=== PATIENT | male | born 1980 | race Caucasian/White ===

== ENCOUNTER 2018-11-08 18:11 | Emergency (ER) | payer OTHER ==
--- NOTE | 2018-11-08 18:15 | EDPHY ---
H & P Time Seen by Provider: 11/08/18 18:14 HPI/ROS: CHIEF COMPLAINT: Palpitations HISTORY OF PRESENT ILLNESS: The patient presents to the ED with a 1 day history of palpitations. The patient describes a sensation of an occasional skipped heartbeat. The patient has been having some pain in his left pectoralis muscle since lifting a heavy box several days ago and wonders if he may be experiencing simple muscle fasciculations. The patient is a formal equipment installation professional. He has no history of exertional chest pain or shortness of breath. The patient does have a history of palpitations associated with anxiety. He is currently undergoing a divorce. He is also recently lost a younger sister 2 breast cancer. He admits to being under fair amount of stress. Patient denies any suicidal or homicidal ideation. He denies any fever , cough or congestion. He denies pleuritic chest pain. He denies asymmetric calf pain or swelling. REVIEW OF SYSTEMS: A comprehensive 10 point review of systems is otherwise negative aside from elements mentioned in the history of present illness. Source: Patient Exam Limitations: No limitations - Medical/Surgical History PMH: Past medical history: Anxiety, palpitations - Family History Significant Family History: No pertinent family hx - Social History Smoking Status: Never smoked - Physical Exam Exam: General Appearance: Alert, no distress Eyes: Pupils equal and round no pallor or injection ENT, Mouth: Mucous membranes moist Respiratory: There are no retractions, lungs are clear to auscultation Cardiovascular: Regular rate and rhythm Gastrointestinal: Abdomen is soft and nontender, no masses, bowel sounds normal Neurological: A&O, normal motor function, normal sensory exam, normal cranial nerves Skin: Warm and dry, no rashes Musculoskeletal: Neck is supple nontender Extremities: symmetrical, full range of motion Psychiatric: Patient is oriented X 3, there is no agitation Constitutional: Initial Vital Signs Temperature (C) 36.7 C 11/08/18 18:16 Heart Rate 78 11/08/18 18:16 Respiratory Rate 18 11/08/18 18:16 Blood Pressure 188/101 H 11/08/18 18:16 O2 Sat (%) 97 11/08/18 18:16 O2 Delivery Mode Room Air Allergies/Adverse Reactions: No Known Allergies Allergy (Unverified 11/08/18 18:23) Home Medications: Medication Instructions Recorded LORazepam [Ativan] 1 mg PO HS PRN #6 tablet 11/08/18 Medical Decision Making - Diagnostics EKG Interpretation: EKG: Complete interpretation has been separately recorded in the [employer] [facility] archive. Summary impression: Sinus rhythm, rate 80, left atrial enlargement, nonspecific ST T wave changes noted in the inferior leads ED Course/Re-evaluation: The patient presents to the ED with benign sound in palpitations and anxiety. The patient is in no acute distress. The patient was initially hypertensive upon arrival and was placed on a blood pressure cuff. The patient was placed on a information technology auditor without evidence of obvious ectopy. Patient's troponin is normal. Blood pressure discharge is 140/92. No ectopy was noted on an hour and half of monitoring in the emergency department. The symptoms are consistent with likely stress and anxiety. The patient has been given a short course of Ativan at his request. He has been given warnings about the use of this medication and potential for abuse and rebound symptoms. Differential Diagnosis: Differential diagnosis considered includes palpitations, PVCs, acute coronary syndrome, anxiety - Data Points Laboratory Results: 11/08/18 18:47 POC Troponin I 0.00 ng/mL ng/mL (0.00-0.08) Point of Care Test Results: Chemistry 11/08/18 18:47 POC Troponin I 0.00 ng/mL ng/mL (0.00-0.08) Departure - Departure Disposition: Home, Routine, Self-Care Clinical Impression: Palpitations Condition: Good Instructions: Heart Palpitations (ED) Additional Instructions: 1. There has been no concerning cardiac arrhythmia noted in the emergency department today. 2. You have been given a short course of Ativan for management of stress and anxiety. 3. Please return to the ED for markedly worsening cardiac symptoms or other concerns. 4. You have been given the contact number of our on-call water pumper if you wish to establish local Cardiac Care for ongoing palpitations. Referrals: Corby Stephens MD [Medical Doctor] - As per Instructions Prescriptions: LORazepam [Ativan] 1 mg PO HS PRN #6 tablet PRN Reason: for anxiety
--- NOTE | 2018-11-08 18:37 | CPEKG ---
Test Reason : OPEN Blood Pressure : / mmHG Vent. Rate : 080 BPM Atrial Rate : 082 BPM P-R Int : 159 ms QRS Dur : 086 ms QT Int : 381 ms P-R-T Axes : 013 041 -14 degrees QTc Int : 440 ms Sinus rhythm Probable left atrial enlargement Borderline T abnormalities, inferior leads Confirmed by Lionel Miner ([id number]) on 11/08/2018 6:37:19 PM Referred By: Lionel Miner Confirmed By:Lionel Miner
[2018-11-08 19:16] VITALS: BP 141/92
== END 2018-11-08 19:40 | disposition home or self-care (01) ==
DX: R00.2 Palpitations (principal)
CPT/HCPCS: 84484-ER